=== PATIENT | female | born 1970 | race Caucasian/White ===

== ENCOUNTER 2025-07-25 16:26 | Observation (INO) | payer MEDICARE, MEDICAID, SELFPAY ==
[2025-07-25] VITALS (9 sets, daily range): BP systolic 115–159; BP diastolic 72–90; PULSE 73–170; RESP 15–22; TEMP 36.4–36.6; O2SAT 96–100
--- NOTE | 2025-07-25 16:29 | XRR_ITS ---
PROCEDURE INFORMATION: Exam: XR Chest Exam date and time: 07/25/2025 4:31 PM Age: 55 years old Clinical indication: Pain; Chest pressure; Additional info: Chest pain TECHNIQUE: Imaging protocol: Radiologic exam of the chest. Views: 1 view. COMPARISON: No relevant prior studies available. FINDINGS: Lungs: No infiltrates. No suspicious masses or nodules. No pulmonary vascular congestion. Pleural spaces: No pleural effusions or pneumothorax. Heart/Mediastinum: Nuni-iw-wsgnymsz cardiomegaly. Bones/joints: No significant osseous lesion. No fractures. XR/XR chest 1V portable [id number] IMPRESSION: 1. No acute cardiopulmonary findings radiographically. 2. Oebu-wk-vlhhzqrd cardiomegaly.
--- NOTE | 2025-07-25 16:29 | ECG_ITS ---
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: : 1970 Requested By: Lo Plummer Order Number: [id number] Suresh MD: KELECHI VANCE Measurements Intervals [place] Rate: 72 P: 61 ID: [id number] QRS: 55 QRSD: 88 T: 50 QT: 367 QTc: 402 Interpretive Statements SINUS RHYTHM LOW QRS VOLTAGE IN PRECORDIAL LEADS [QRS DEFLECTION < 1.0 mV IN CHEST LEADS] POSSIBLE ANTERIOR MYOCARDIAL INFARCTION , OF INDETERMINATE AGE [30 ms Q WAVE IN V3/V4, OR R < 0.2 mV IN V4] No previous ECG available for comparison Electronically Signed On 07-26-2025 16:48:58 CDT by KELECHI VANCE [email or web address] [id number]
--- NOTE | 2025-07-25 16:33 | ED_ITS ---
HPI - Chest Pain 2 General: Chief Complaint: Chest Pain Stated Complaint: Chest Pain Time Seen by Provider: 07/25/25 16:29 History of Present Illness: 55-year-old female with a history of obe sity, schizophrenia and hypertension who presents emergency room with chest pain. She says she had an abnormal stress test at 1 point but never went back and had it followed up. She is having central substernal chest pain. Is been going on for couple days now. No cough. No fever. No nausea or vomiting. No altered mental status Related Data Allergies Allergy/AdvReac Type Severity Reaction Status Date / Time codeine Allergy Unknown Verified 07/25/25 16:37 levofloxacin (From Levaquin) Allergy Unknown Verified 07/25/25 16:37 Penicillins Allergy Unknown Verified 07/25/25 16:37 Tetanus Vaccines and Toxoid Allergy Unknown Verified 07/25/25 16:37 Review of Systems 2 Narrative: Constitutional symptoms: Negative except as documented in HPI. Skin symptoms: Negative except as documented in HPI. Eye symptoms: Negative except as documented in HPI. ENMT symptoms: Negative except as documented in HPI. Respiratory symptoms: Negative except as documented in HPI. Cardiovascular symptoms: Negative except as documented in HPI. Gastrointestinal symptoms: Negative except as documented in HPI. Genitourinary symptoms: Negative except as documented in HPI. Musculoskeletal symptoms: Negative except as documented in HPI. Neurologic symptoms: Negative except as documented in HPI. Psychiatric symptoms: Negative except as documented in HPI. Endocrine symptoms: Negative except as documented in HPI. Physical Exam 2 Narrative: EXAM NARRATIVE: General: Alert, no acute distress. Skin: Warm, dry. Head: Normocephalic, atraumatic. Neck: Supple, trachea midline. Eye: Extraocular movements are intact. Ears, nose, mouth and throat: mucosa moist. Cardiovascular: Regular, Normal peripheral perfusion. Respiratory: Lungs are clear to auscultation, respirations are non-labored, breath sounds are equal, Symmetrical chest wall expansion. Gastrointestinal: Soft, Nontender, Non distended Musculoskeletal: Normal ROM, no deformity. Neurological: Alert and oriented, No focal neurological deficit observed. Psychiatric: Cooperative, appropriate mood & affect. Course 2 Vital Signs: Vital signs: Vital Signs Temperature 97.8 F 07/25/25 16:30 Pulse Rate 74 07/25/25 18:35 Respiratory Rate 20 H 07/25/25 18:35 Blood Pressure 130/79 07/25/25 18:35 Pulse Oximetry 100 07/25/25 18:35 Oxygen Delivery Me thod Room Air 07/25/25 18:35 MDM - Chest Pain Medical Decision Making Differential diagnosis for patient with chest pain includes but is not limited to and based on the above HPI, review of systems and physical exam: Pneumonia. unstable angina. angina. Acute coronary syndrome / SD. Pulmonary embolism. Costochondritis / musculoskeletal. Pleurisy. Pericarditis. Esophageal spasm. Pancreatis. Cholecystitis. Orders placed to evaluate differential diagnosis based on the above differential, HPI and physical exam EKG: Time 1627. Rate 72. Normal sinus rhythm, nonspecific ST changes, no ectopy, normal GA & QRS intervals, This was reviewed and interpreted by myself the ER physician at 1631 Lab Review: Laboratory results were reviewed and interpreted by myself the emergency room physician. No leukocytosis. No anemia. BUNs slightly elevated at 25 with a normal creatinine at 0.7. Initial troponin is negative at less than 6. Chest x-ray: Mild to moderate cardiomegaly. No acute process. No infiltrate. No pneumothorax. This was reviewed and interpreted by myself the emergency room physician. I also reviewed the radiology report. I reviewed the patient's medical record. No previous visits here. Reexamination: Patient remained stable. No increased work of breathing. No altered mental status. No focal motor deficits. Consultation: I spoke Dr. Brenda Abbasi who is on-call for the hospitalist service who agrees to admission. Assessment and plan: Chest pain History of abnormal stress test ?Given heart score and a previous abnormal stress test patient should be observed. -I discussed the patient with the hospitalist on-call who is admitting the patient. - Discussed findings and plan with patient. Answered any questions. - All laboratory values were reviewed and interpreted personally by myself, the ER physician - All imaging was reviewed and interpreted personally by myself, the ER physician. - Evaluation and treatment of this problem were appropriate in the emergency setting Lab Data 07/25/25 16:41 07/25/25 16:41 Radiology Impressions Chest X-Ray 07/25/25 16:29 IMPRESSION: 1. No acute cardiopulmonary findings radiographically. 2. Rhsm-dm-gbakskgr cardiomegaly. Laboratory Results WBC 12.08 10^3/uL (3.29-11.43) H 07/25/25 16:41 RBC 4.83 10^6/uL (3.85-5.65) 07/25/25 16:41 Hgb 13.20 g/dL (11.27-16.99) 07/25/25 16:41 Hct 41.9 % (36-47) 07/25/25 16:41 MCV 86.7 fl (85-98) 07/25/25 16:41 MCH 27.3 pg (27-33) 07/25/25 16:41 MCHC 31.5 g/dL (30-55) 07/25/25 16:41 RDW 14.7 % (12.1-15.1) 07/25/25 16:41 Plt Count 221 10^3/cmm (157-399) 07/25/25 16:41 MPV 10.0 fL (7.4-10.4) 07/25/25 16:41 Neut % (Auto) 74.7 % 07/25/25 16:41 Lymph % (Auto) 15.1 % 07/25/25 16:41 [place] % (Auto) 6.2 % 07/25/25 16:41 Eos % (Auto) 2.9 % 07/25/25 16:41 Baso % (Auto) 0.9 % 07/25/25 16:41 Neut # (Auto) 9.02 10^3/uL (1.8-7.7) H 07/25/25 16:41 Lymph # (Auto) 1.8 10^3/uL (0.8-4.8) 07/25/25 16:41 [place] # (Auto) 0.8 10^3/uL (0.2-0.9) 07/25/25 16:41 Eos # (Auto) 0.4 10^3/uL (0.0-0.8) 07/25/25 16:41 Baso # (Auto) 0.1 10^3/uL (0.0-0.1) 07/25/25 16:41 Nucleated RBC % (auto) 0 % 07/25/25 16:41 Nucleated RBCs # 0.0 /100WBC 07/25/25 16:41 Sodium 142 mmol/L (136-145) 07/25/25 16:41 Potassium 4.4 mmol/L (3.5-5.1) 07/25/25 16:41 Chloride 106 mmol/L (98-107) 07/25/25 16:41 Carbon Dioxide 26 mmol/L (22-29) 07/25/25 16:41 Anion Gap 14.4 (5-19) 07/25/25 16:41 BUN 25 mg/dL (6-20) H 07/25/25 16:41 Creatinine 0.7 mg/dL (0.5-0.9) 07/25/25 16:41 GFR Calculation 86.6 mL/min (90-130) L 07/25/25 16:41 Glucose 99 mg/dL (65-115) 07/25/25 16:41 Calculated Osmolality 298 mOsm/kg (285-295) H 07/25/25 16:41 Calcium 9.2 mg/dL (8.5-10.5) 07/25/25 16:41 Total Bilirubin 0.3 mg/dL (0.15-1.2) 07/25/25 16:41 AST 14 U/L (0-32) 07/25/25 16:41 ALT 15 U/L (0-33) 07/25/25 16:41 Alkaline Phosphatase 73 U/L (35-105) 07/25/25 16:41 Troponin T Baseline < 6 ng/L (0-10) 07/25/25 16:41 NT-Pro-B Natriuret Pep 73 pg/mL (0-125) 07/25/25 16:41 Total Protein 6.4 g/dL (6.6-8.7) L 07/25/25 16:41 Albumin 4.1 g/dL (3.5-5.2) 07/25/25 16:41 Globulin 2.3 g/dL (1.3-4.6) 07/25/25 16:41 All radiology interpretation(s) finalized by discharge Clincial Decision Support The following clinical decision support tools were used to aid in care of the patient HEART Score -> History: Moderately Suspicious, EKG: Non-specific Changes, Age: 45-64 yrs, Risk Factors: 1 or 2 Risk Factors, Troponin: Baseline Trop <16 ng/L. Resulting HEART Score: 4. Discharge Plan Discharge Patient Disposition: Placed in Observation Admit Provider: Valeria Abbasi Clinical Impression: Chest pain Coding Level of Care Code ED [employer] Administrator for Chg Fwd Heart Score HEART Score Components History: Moderately Suspicious EKG: Non-specific Changes Age: 45-64 yrs Risk Factors: 1 or 2 Risk Factors Troponin: Baseline Trop <16 ng/L HEART Score RESULT HEART Score: 4
[2025-07-25 16:55] LABS: Hematocrit 41.9 % (36-47); Hemoglobin 13.20 g/dL (11.27-16.99); Mean Corpuscular HGB Conc 31.5 g/dL (30-55); Mean Corpuscular Hemoglobin 27.3 pg (27-33); Mean Corpuscular Volume 86.7 fl (85-98); Nucleated Red Blood Cells % 0 %; Platelet Count 221 10^3/cmm (157-399); Red Blood Count 4.83 10^6/uL (3.85-5.65); White Blood Count 12.08 10^3/uL (3.29-11.43)
[2025-07-25 17:21] LABS: Troponin(5th) Baseline < 6 ng/L (0-10)
[2025-07-25 17:31] LABS: Alanine Aminotransferase 15 U/L (0-33); Albumin Level 4.1 g/dL (3.5-5.2); Alkaline Phosphatase 73 U/L (35-105); Aspartate Amino Transferase 14 U/L (0-32); Blood Urea Nitrogen 25 mg/dL (6-20); Calcium 9.2 mg/dL (8.5-10.5); Carbon Dioxide 26 mmol/L (22-29); Chloride 106 mmol/L (98-107); Creatinine Clr Calc Pharmacy 111.4163; Globulin 2.3 g/dL (1.3-4.6); Glucose 99 mg/dL (65-115); NT Pro B Type Natriuretic Pept 73 pg/mL (0-125); Osmolality Calculated 298 mOsm/kg (285-295); Sodium 142 mmol/L (136-145); Total Protein 6.4 g/dL (6.6-8.7)
[2025-07-25 17:35] LABS: Anion Gap 14.4 (5-19); Potassium 4.4 mmol/L (3.5-5.1)
[2025-07-25 18:44] LABS: Troponin 5 2HR < 6.0 ng/L (0-10); Troponin 5 2HR Delta 0 ABS# (0-10)
--- NOTE | 2025-07-25 19:04 | ECG_ITS ---
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1970 Requested By: Lo Plummer Order Number: [id number] Reading MD: KELECHI VANCE Measurements Intervals [place] Rate: 67 P: 56 NH: 192 QRS: 44 QRSD: 90 T: 61 QT: 403 QTc: 425 Interpretive Statements SINUS RHYTHM LOW QRS VOLTAGE IN PRECORDIAL LEADS [QRS DEFLECTION < 1.0 mV IN CHEST LEADS] POSSIBLE ANTERIOR MYOCARDIAL INFARCTION , OF INDETERMINATE AGE [30 ms Q WAVE IN V3/V4, OR R < 0.2 mV IN V4] Compared to ECG 07/25/2025 16:27:07 No significant changes Electronically Signed On 07-26-2025 16:56:11 CDT by KELECHI VANCE [id number] [id number]
[2025-07-25 19:17] LABS: Procalcitonin 0.06 ng/mL (0-0.5)
--- NOTE | 2025-07-25 19:24 | P.HP_ITS ---
Providers/Chief Complaint 2 Admitting Physician: Valeria Abbasi MD Chief Complaint: Chest Pain History of Present Illness Laura Murphy is a 55 year old female with COPD, hypertension, schizophrenia, and obesity presenting with chest pain and shortness of breath. She has been having intermittent chest pain for the past few days. It starts in the substernal region and radiates across both sides of the chest. She has a chronic cough that is unchanged. She does report increased shortness of breath and wheezing. She is an everyday smoker. She had an an abnormal stress test several years ago but had no follow-up. Her initial troponin was negative. EKG showed T wave inversion in anterior leads. Review of Systems 2 General: Reports: 10 or more systems reviewed and unremarkable except in HPI and below Medications/Allergies Allergies Allergy/AdvReac Type Severity Reaction Status Date / Time codeine Allergy Unknown Verified 07/25/25 16:37 levofloxacin (From Levaquin) Allergy Unknown Verified 07/25/25 16:37 Penicillins Allergy Unknown Verified 07/25/25 16:37 Tetanus Vaccines and Toxoid Allergy Unknown Verified 07/25/25 16:37 Vitals/I&O/Wt Last Vital Signs Temp 97.8 F 07/25/25 16:30 Pulse 74 07/25/25 18:35 Resp 20 H 07/25/25 18:35 BP 130/79 07/25/25 18:35 Pulse Ox 100 07/25/25 18:35 O2 Del Method Room Air 07/25/25 18:35 Weight last 48 hrs Weight 128.367 kg Physical Exam 2 Narrative: GEN: Obese, no acute distress HEENT: PERRLA, EOMI, normocephalic and atraumatic Neck: Supple Respiratory: Diffuse wheezing bilaterally, mild increased work of breathing Cardio: Regular rate and rhythm, S1, S2, no murmur noted Abdomen: Soft, nontender, nondistended, normal active bowel sounds Extremities: Warm, no edema Psych: Cooperative Data 07/25/25 16:41 07/25/25 16:41 EKG 1: My Interpretation: Normal sinus rhythm, T wave inversion in V2, no ST elevation A&P Assessment and plan 1. Chest pain: She has respecters including obesity, tobacco use disorder, and hypertension Aspirin 81 mg daily, nitroglycerin as needed Trend troponin Telemetry monitoring Echo and stress test in a.m. 2. COPD with acute exacerbation: Solu-Medrol 40 every 8, DuoNeb 4 times daily Monitor O2 sats 3. Tobacco use disorder: Counseled on smoking cessation for 4 minutes Nicotine patch ordered 4. Hypertension: Monitor blood pressure closely 5. Schizophrenia: Not on any meds at this time 6. Obesity: She would benefit from significant weight loss. PDMP PDMP Reviewed: Not Reviewed Attestations 2 Medical Necessity Statement*: She requires initial hospitalization for telemetry monitoring, IV steroids, stress test, and echocardiogram. Coding Level of Care Code Acute Code for [facility] Diagnoses Chest pain R07.9 COPD with acute exacerbation J44.1 Tobacco use disorder F17.200 Hypertension I10 Schizophrenia F20.9 Obesity E66.9
--- NOTE | 2025-07-25 20:12 | CTR_ITS ---
PROCEDURE INFORMATION: Exam: CTA Chest With Contrast Exam date and time: 07/25/2025 8:34 PM Age: 55 years old Clinical indication: Pain; Angina pectoris; Additional info: Chest pain TECHNIQUE: Imaging protocol: Computed tomographic angiography of the chest with contrast. Exam focused on the arteries. 3D rendering (Not supervised by radiologist): MIP and/or 3D reconstructed images were created by the technologist. Radiation optimization: All CT scans at this facility use at least one of these dose optimization techniques: automated exposure control; mA and/or kV adjustment per patient size (includes targeted exams where dose is matched to clinical indication); or iterative reconstruction. Contrast material: OMNI 350; Contrast volume: 100 ml; Contrast route: INTRAVENOUS (IV); COMPARISON: CR XR chest 1V portable [id number] 07/25/2025 4:31 PM RADIATION DOSE METRICS: Total DLP (mGy-cm): 540.99 FINDINGS: Pulmonary arteries: There is no demonstration of acute or chronic pulmonary embolism Aorta: Unremarkable. No aortic aneurysm. No aortic dissection. Lungs: There is a 3 mm noncalcified right upper lobe pulmonary nodule on image 182 series 8 there is a 2nd 3 mm noncalcified pulmonary nodule right upper lobe image 163 series 8 Pleural spaces: There are no consolidations, pleural effusions or pneumothoraces. Heart: Unremarkable. No cardiomegaly. No pericardial effusion. Coronary arteries: Coronary artery calcifications demonstrated Lymph nodes: Unremarkable. No enlarged lymph nodes. Pancreas: There is partial fatty replacement of the pancreas. Bones/joints: Unremarkable. No acute fracture. Soft tissues: Unremarkable. Other findings: There is no aneurysm CT/CT angio chest [id number] IMPRESSION: No findings to suggest acute or chronic pulmonary embolism No acute cardiopulmonary process demonstrated Findings of right upper lobe noncalcified pulmonary nodules 3 mm, for follow-up guidelines see below statement: For patients at low risk (minimal or absent history of smoking and of other known risk factors), no routine follow-up is indicated. For patients at high risk (history of smoking or of other known risk factors), consider optional CT Chest at 12 months. (Reference: Giselle) References: Giselle Contreras et al. Guidelines for Management of Incidental Pulmonary Nodules Detected on CT Images: From the Fleischner Society 2017. Radiology. 2017;284(1):228-243.
--- NOTE | 2025-07-25 21:02 | ECG_ITS ---
[facility] Test Date: 2025-07-26 Pat Name: Laura Murphy Department: Room: 267 Gender: Female Welt Rander: : 1970 Requested By: Valeria Abbasi Order Number: [id number] Reading MD: Interpretive Statements Lung unchanged pre/post procedure; Intraprocedure shortess of breath; Symptoms resoled by discharge [email or web address] [id number]
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
[2025-07-25] MEDS: methylPREDNISolone sod succ 40 mg/mL INJ IVP (21:18)
--- NOTE | 2025-07-25 22:29 | ECG_ITS ---
[employer] Test Date: 2025-07-25 Pat Name: Laura Murphy Department: Room: 267 Gender: Female Data Clerk: : 1970 Requested By: Lo Plummer Order Number: [id number] Reading MD: KELECHI VANCE Measurements Intervals [place] Rate: 63 P: 64 DE: 189 QRS: 63 QRSD: 92 T: 64 QT: 392 QTc: 403 Interpretive Statements SINUS RHYTHM LOW QRS VOLTAGE [QRS DEFLECTION < 0.5/1.0 mV IN LIMB/CHEST LEADS] POSSIBLE ANTERIOR MYOCARDIAL INFARCTION , OF INDETERMINATE AGE [30 ms Q WAVE IN V3/V4, OR R < 0.2 mV IN V4] Compared to ECG 07/25/2025 19:04:21 No significant changes Electronically Signed On 07-26-2025 16:56:15 CDT by KELECHI VANCE [id number] [id number]
[2025-07-25 23:58] LABS: Troponin 5 6HR < 6.0 ng/L (0-10); Troponin 5 6HR Delta 0 ng/L (0-12)
[2025-07-26] VITALS (13 sets, daily range): BP systolic 111–146; BP diastolic 66–96; PULSE 64–90; RESP 16–20; TEMP 36.5–37.1; O2SAT 92–100
[2025-07-26] MEDS: methylPREDNISolone sod succ 40 mg/mL INJ IVP ×3 (04:16→20:19)
[2025-07-26 05:12] LABS: Hematocrit 43.7 % (36-47); Hemoglobin 14.10 g/dL (11.27-16.99); Mean Corpuscular HGB Conc 32.3 g/dL (30-55); Mean Corpuscular Hemoglobin 27.5 pg (27-33); Mean Corpuscular Volume 85.4 fl (85-98); Nucleated Red Blood Cells % 0 %; Platelet Count 276 10^3/cmm (157-399); Red Blood Count 5.12 10^6/uL (3.85-5.65); White Blood Count 9.24 10^3/uL (3.29-11.43)
[2025-07-26 05:31] LABS: Cholesterol 232 mg/dL (0-200); HDL Cholesterol 86 mg/dL (60-100); Triglycerides 74 mg/dL (0-150)
[2025-07-26 05:34] LABS: Albumin Level 4.2 g/dL (3.5-5.2); Anion Gap 15.0 (5-19); Blood Urea Nitrogen 19 mg/dL (6-20); Calcium 9.7 mg/dL (8.5-10.5); Carbon Dioxide 26 mmol/L (22-29); Chloride 104 mmol/L (98-107); Creatinine Clr Calc Pharmacy 131.1849; Glucose 162 mg/dL (65-115); Magnesium 2.2 mg/dL (1.7-2.3); Potassium 5.0 mmol/L (3.5-5.1); Sodium 140 mmol/L (136-145)
[2025-07-26] MEDS: aminophylline 25 mg/mL SDV 20 mL IVP (07:38)
--- NOTE | 2025-07-26 10:01 | PC.PHAR ---
Pt not in room at 1st visit and unable to wake up at 2nd visit. Verified pts current meds via [facility] and [facility].
--- NOTE | 2025-07-26 11:52 | PM.PN ---
Subjective Subjective: She reported fatigue and wheezing. She also has a headache. She had a stress test this morning along with echo. Results are pending. She does not feel like she is well enough to go home today. Medications: Reviewed: Yes Vitals/I&O/Wt Last Vital Signs Temp 98.0 F 07/26/25 11:13 Pulse 75 07/26/25 11:43 Resp 18 07/26/25 11:35 BP 118/81 07/26/25 11:13 Pulse Ox 98 07/26/25 11:35 O2 Del Method Room Air 07/26/25 11:35 07/25/25 07/26/25 07/26/25 22:59 06:59 14:59 Output Total 1500 / 1500 Balance -1500 / -1500 Weight last 48 hrs Weight 128.565 kg Weight 128.565 kg Weight 130.181 kg Weight 128.367 kg Physical Exam Narrative: GEN: Obese, no acute distress HEENT: PERRLA, EOMI, normocephalic and atraumatic Neck: Supple Respiratory: Bilateral expiratory wheezing, no respiratory distress Cardio: Regular rate and rhythm, S1, S2, no murmur noted Abdomen: Soft, nontender, nondistended, normal active bowel sounds Extremities: Warm, no edema Psych: Cooperative Data 07/26/25 04:37 07/26/25 04:37 A&P Assessment and plan 1. Chest pain: She has risk factors including obesity, tobacco use disorder, and hypertension Aspirin 81 mg daily, nitroglycerin as needed Troponin has been negative Follow-up official reports of echo and nuclear stress test Telemetry monitoring 2. COPD with acute exacerbation: Saturating well on room air but still has bilateral expiratory wheezing Continue Solu-Medrol 40 every 8, DuoNeb 4 times daily Monitor O2 sats 3. Tobacco use disorder: Counseled on smoking cessation for 4 minutes Continue nicotine patch 4. Hypertension: BP has been stable, continue to monitor 5. Schizophrenia: Not on any meds at this time 6. Obesity: She would benefit from significant weight loss. PDMP PDMP Reviewed: Not Reviewed Attestations Medical Necessity Statement*: She needs continued hospitalization for IV steroids and neb treatments. Coding Level of Care Code Acute Code for [facility] Diagnoses Chest pain R07.9 COPD with acute exacerbation J44.1 Tobacco use disorder F17.200 Hypertension I10 Schizophrenia F20.9 Obesity E66.9
[2025-07-26 17:33] LABS: Coronavirus 229E,HKU1,NL63,OC4 Not Detected (NOT DETECT); Parainfluenza Virus Type 1 Not Detected (NOT DETECT); Parainfluenza Virus Type 2 Not Detected (NOT DETECT); Parainfluenza Virus Type 3 Not Detected (NOT DETECT); Parainfluenza Virus Type 4 Not Detected (NOT DETECT); SARS-COV-2 Not Detected (NOT DETECT)
--- NOTE | 2025-07-26 21:02 | NMCV_ITS ---
NM mc perf SPECT r/s* [id number] Laura Murphy Age: 55 Gender: F : 1970 Exam Date: 07/26/2025 06:47 Ordering Phys: Valeria Abbasi MD Technologist: CARMENCITA Noriega Exam Location: [facility] Indications: cp STRESS TEST Please see separate stress test report in [facility] for full findings IMAGE PROTOCOL Rest/Stress 1 Lexiscan Day Radiopharmaceutical Dose (mCi) Administration Site Administered by Rest: Tc-99m 11 IV CARMENCITA Noriega Sestamibi Stress:Tc-99m 33 IV CARMENCITA Gomez Sestamibi Rest: 26-Jul-2025 60 Discovery 630 Stress: 26-Jul-2025 30 Discovery 630 0.4mg Lexiscan. Images obtained in supine and prone position. SPECT RESULTS Technical Quality: Good Raw Data Analysis: Normal Image Corrections: No attenuation or motion correction applied Summed Stress Score: 0 Summed Rest Score: 0 Summed Difference Score: 0 PERFUSION FINDINGS Small areas of inconsistent perfusion defect seen in anterior and inferior higgins. Likely attenuation artifact. No significant ischemia seen. FUNCTIONAL RESULTS (calculated via Gated SPECT) Stress Image LV EF (%): 65 Stress EDV (mL):141 TID: 1.28 Stress ESV (mL):49 FUNCTIONAL FINDINGS: There is normal left ventricular systolic function. IMPRESSIONS 1. Small areas of attenuation artifact seen in anterior and inferior higgins. No significant ischemia. Clinical correlation is required. 2. LV systolic function is normal William Manuel MD (Electronically Signed) Final Date: 26 July 2025 11:02 S
--- NOTE | 2025-07-26 21:02 | USCV_ITS ---
Laura Murphy Age: 55 Gender: F : 1970 Exam Date: 07/26/2025 11:03 Ordering Phys: Valeria Abbasi MD Technologist: Exam Location: [facility] [place] Indication: cp sob BP: 130 / 80 HR: 88 Rhythm: Sinus Technical Quality: Adequate MEASUREMENTS (Male / Female) Normal Values 2D ECHO LV Diastolic Diameter PLAX 4.7 cm 4.2 - 5.9 / 3.9 - 5.3 cm IVS Diastolic Thickness 1.4 cm 0.6 - 1.0 / 0.6 - 0.9 cm IVS Systolic Thickness 1.7 cm LVPW Diastolic Thickness 1.4 cm 0.6 - 1.0 / 0.6 - 0.9 cm LVPW Systolic Thickness 1.5 cm LVOT Diameter 2.1 cm LV Ejection Fraction 2D Teich 66.0 % LV Ejection Fraction MOD 4C 57.1 % LV Ejection Fraction MOD 2C 50.7 % LV Ejection Fraction 2C AL 52.7 % LA Diameter 3.8 cm RA Systolic Volume 4C AL 72.1 ml RA Systolic Volume 4C MOD 70.0 ml Aorta at Sinotubular Diameter 2.8 cm IVC Diameter 1.9 cm M-MODE LA Ao Ratio MM 1.5 MV E Point Septal Separation 1.6 cm AV Cusp Separation MM 2.7 cm DOPPLER AV Peak Velocity 172.0 cm/s LVOT Peak Velocity 102.0 cm/s AV Area Cont Eq vti 2.1 cm squared AV Area Cont Eq pk 2.0 cm squared MV Peak Velocity 137.0 cm/s MV Area PHT 2.8 cm squared Mitral E to A Ratio 0.8 TV Peak Velocity 160.0 cm/s TR Peak Velocity 161.0 cm/s TR Peak Gradient 10.4 mmHg TV Peak E Velocity 120.0 cm/s PV Peak Velocity 164.0 cm/s FINDINGS Left Ventricle Normal left ventricular size, systolic function and wall thickness, with no regional wall motion abnormalities. Left ventricular ejection fraction is estimated at 60%. Grade I/IV diastolic dysfunction (abnormal relaxation filling pattern), normal to mildly elevated filling pressures. Right Ventricle Normal right ventricular size and systolic function. Right Atrium Normal right atrial size. Left Atrium Mildly increased left atrial size. IA Septum Normal appearance of the interatrial septum. Mitral Valve Mildly thickened mitral valve. No mitral valve stenosis. Mild mitral valve regurgitation. Aortic Valve Mild aortic valve calcification. No aortic valve stenosis. Mild aortic valve regurgitation. Tricuspid Valve Mild tricuspid valve regurgitation. Pulmonic Valve Normal pulmonic valve structure. No pulmonic valve stenosis or regurgitation. Pericardium No pericardial effusion. Aorta Normal diameter of the aortic root and ascending thoracic aorta. IVC Normal IVC diameter. CONCLUSIONS Normal left ventricular size, systolic function and wall thickness, with no regional wall motion abnormalities. Left ventricular ejection fraction is estimated at 60%. Grade I/IV diastolic dysfunction (abnormal relaxation filling pattern), normal to mildly elevated filling pressures. Mild aortic valve calcification. No aortic valve stenosis. Mild aortic valve regurgitation. There is no pericardial effusion. Right atrial pressure is around 5 mm of mercury. Jeanette Dale MD (Electronically Signed) Final Date: 27 July 2025 13:44 S
[2025-07-27] VITALS (7 sets, daily range): BP systolic 142–167; BP diastolic 80–92; PULSE 70–94; RESP 16–24; TEMP 36.6–37.1; O2SAT 94–97
[2025-07-27] MEDS: methylPREDNISolone sod succ 40 mg/mL INJ IVP (05:26)
--- NOTE | 2025-07-27 11:14 | PM.DCS ---
Discharge Providers Date of Admission: 07/25/25 18:32 Date of Discharge: July 27, 2025 Attending Provider at Admission: Valeria Abbasi MD Attending Provider at Discharge: Valeria Abbasi MD Consults: None Diagnoses at Discharge Discharge Diagnosis 1. Chest pain: 2. COPD with acute exacerbation: 3. Tobacco use disorder: 4. Hypertension: 5. Schizophrenia: 6. Obesity: Reason for Visit Reason for Visit: Chest Pain Brief History: This is a 55 year old female with COPD, hypertension, schizophrenia, and obesity who with chest pain, wheezing and shortness of breath. She is an everyday smoker. She had an an abnormal stress test several years ago but had no follow-up. Her initial troponin was negative. EKG showed T wave inversion in anterior leads. Hospital Course Hospital Course There was no significant ischemia on nuclear cardiac stress test. Echocardiogram showed normal LV size, systolic function, and wall thickness. There was no regional wall motion abnormalities. LVEF was 60%. She had grade 1 diastolic dysfunction. She had notable wheezing on admission. She still smokes. She was treated for COPD exacerbation. She was discharged home on a prednisone taper. She is saturating well on room air. She did not qualify for home oxygen. She used to wear 2 L/min O2 at night. She was concerned about sleep apnea. Outpatient sleep study was ordered. Physical Exam Narrative: GEN: Obese, no acute distress HEENT: PERRLA, EOMI, normocephalic and atraumatic Neck: Supple Respiratory: Scattered expiratory wheezing, no respiratory distress Cardio: Regular rate and rhythm, S1, S2, no murmur noted Abdomen: Soft, nontender, nondistended, normal active bowel sounds Extremities: Warm, no edema Psych: Cooperative Discharge Data Studies Completed and Pending Completed Studies During Hospitalization Category Date Time Status CTA chest [CT angio chest 03497] Routine Cat Scan 07/25/25 20:12 Completed Cardiac Stress Test MIBI [Sestamibi Stress Test Request Exams 07/25/25 21:02 Draft ] Routine XR chest 1V portable [id number] Stat Exams 07/25/25 16:29 Completed NM mc perf SPECT r/s* [id number] Routine Nuc Med 07/26/25 21:02 Completed Pending at discharge Category Date Time Status Sputum Culture and Gram Stain Stat Lab 07/27/25 08:15 Received CV. echo complete* [id number] Routine Ultrasound 07/26/25 21:02 Taken Radiology Impressions Chest X-Ray 07/25/25 16:29 IMPRESSION: 1. No acute cardiopulmonary findings radiographically. 2. [id number]-[id number] cardiomegaly. Chest CTA 07/25/25 20:12 IMPRESSION: No findings to suggest acute or chronic pulmonary embolism No acute cardiopulmonary process demonstrated Findings of right upper lobe noncalcified pulmonary nodules 3 mm, for follow-up guidelines see below statement: For patients at low risk (minimal or absent history of smoking and of other known risk factors), no routine follow-up is indicated. For patients at high risk (history of smoking or of other known risk factors), consider optional CT Chest at 12 months. (Reference: Giselle) References: Giselle Contreras, et al. Guidelines for Management of Incidental Pulmonary Nodules Detected on CT Images: From the Fleischner Society 2017. Radiology. 2017;284(1):228-243. Laboratory Results WBC 9.24 10^3/uL (3.29-11.43) 07/26/25 04:37 RBC 5.12 10^6/uL (3.85-5.65) 07/26/25 04:37 Hgb 14.10 g/dL (11.27-16.99) 07/26/25 04:37 Hct 43.7 % (36-47) 07/26/25 04:37 MCV 85.4 fl (85-98) 07/26/25 04:37 MCH 27.5 pg (27-33) 07/26/25 04:37 MCHC 32.3 g/dL (30-55) 07/26/25 04:37 RDW 14.6 % (12.1-15.1) 07/26/25 04:37 Plt Count 276 10^3/cmm (157-399) 07/26/25 04:37 MPV 9.9 fL (7.4-10.4) 07/26/25 04:37 Neut % (Auto) 92.5 % 07/26/25 04:37 Lymph % (Auto) 6.0 % 07/26/25 04:37 Frederick % (Auto) 0.5 % 07/26/25 04:37 Eos % (Auto) 0.1 % 07/26/25 04:37 Baso % (Auto) 0.6 % 07/26/25 04:37 Neut # (Auto) 8.54 10^3/uL (1.8-7.7) H 07/26/25 04:37 Lymph # (Auto) 0.6 10^3/uL (0.8-4.8) L 07/26/25 04:37 Frederick # (Auto) 0.1 10^3/uL (0.2-0.9) L 07/26/25 04:37 Eos # (Auto) 0.0 10^3/uL (0.0-0.8) 07/26/25 04:37 Baso # (Auto) 0.1 10^3/uL (0.0-0.1) 07/26/25 04:37 Nucleated RBC % (auto) 0 % 07/26/25 04:37 Nucleated RBCs # 0.0 /100WBC 07/26/25 04:37 D-Dimer 1.01 ug/mLFEU (0-0.59) H 07/25/25 16:41 Sodium 140 mmol/L (136-145) 07/26/25 04:37 Potassium 5.0 mmol/L (3.5-5.1) 07/26/25 04:37 Chloride 104 mmol/L (98-107) 07/26/25 04:37 Carbon Dioxide 26 mmol/L (22-29) 07/26/25 04:37 Anion Gap 15.0 (5-19) 07/26/25 04:37 BUN 19 mg/dL (6-20) 07/26/25 04:37 Creatinine 0.6 mg/dL (0.5-0.9) 07/26/25 04:37 GFR Calculation 103.4 mL/min (90-130) 07/26/25 04:37 Glucose 162 mg/dL (65-115) H 07/26/25 04:37 Calculated Osmolality 298 mOsm/kg (285-295) H 07/25/25 16:41 Calcium 9.7 mg/dL (8.5-10.5) 07/26/25 04:37 Phosphorus 3.6 mg/dL (2.5-4.5) 07/26/25 04:37 Magnesium 2.2 mg/dL (1.7-2.3) 07/26/25 04:37 Total Bilirubin 0.3 mg/dL (0.15-1.2) 07/25/25 16:41 AST 14 U/L (0-32) 07/25/25 16:41 ALT 15 U/L (0-33) 07/25/25 16:41 Alkaline Phosphatase 73 U/L (35-105) 07/25/25 16:41 Troponin T Baseline < 6 ng/L (0-10) 07/25/25 16:41 Troponin T 120 Minute < 6.0 ng/L (0-10) 07/25/25 18:17 Delta Troponin T 0 ABS# (0-10) 07/25/25 18:17 Troponin T Hi Sens 6Hr < 6.0 ng/L (0-10) 07/25/25 23:27 Troponin T Hi Sens 6Hr Delta 0 ng/L (0-12) 07/25/25 23:27 NT-Pro-B Natriuret Pep 73 pg/mL (0-125) 07/25/25 16:41 Total Protein 6.4 g/dL (6.6-8.7) L 07/25/25 16:41 Albumin 4.2 g/dL (3.5-5.2) 07/26/25 04:37 Globulin 2.3 g/dL (1.3-4.6) 07/25/25 16:41 Triglycerides 74 mg/dL (0-150) 07/26/25 04:37 Cholesterol 232 mg/dL (0-200) H 07/26/25 04:37 LDL Cholesterol, Calc 131 mg/dL (50-129) H 07/26/25 04:37 HDL Cholesterol 86 mg/dL (60-100) 07/26/25 04:37 LDL/HDL Ratio 1.52 RATIO (0.00-3.22) 07/26/25 04:37 Cholesterol/HDL Ratio 2.70 mg/dL (0.0-4.40) 07/26/25 04:37 Procalcitonin 0.06 ng/mL (0-0.5) 07/25/25 16:41 Adenovirus (PCR) Not detected (NOT DETECT) 07/26/25 13:12 C. pneumoniae DNA (PCR) Not detected (NOT DETECT) 07/26/25 13:12 Coronavirus 229E (PCR) Not detected (NOT DETECT) 07/26/25 13:12 Human Metapneumovir PCR Not detected (NOT DETECT) 07/26/25 13:12 Influenza A (H1) PCR Not detected (NOT DETECT) 07/26/25 13:12 Influ A (H1/09) PCR Not detected (NOT DETECT) 07/26/25 13:12 Influenza A (H3) PCR Not detected (NOT DETECT) 07/26/25 13:12 Influenza Type A (PCR) Not detected (NOT DETECT) 07/26/25 13:12 Influenza Type B (PCR) Not detected (NOT DETECT) 07/26/25 13:12 M. pneumoniae (PCR) Not detected (NOT DETECT) 07/26/25 13:12 Parainfluenza 1 (PCR) Not detected (NOT DETECT) 07/26/25 13:12 Parainfluenza 2 (PCR) Not detected (NOT DETECT) 07/26/25 13:12 Parainfluenza 3 (PCR) Not detected (NOT DETECT) 07/26/25 13:12 Parainfluenza 4 (PCR) Not detected (NOT DETECT) 07/26/25 13:12 RSV Type A (PCR) Not detected (NOT DETECT) 07/26/25 13:12 RSV Type B (PCR) Not detected (NOT DETECT) 07/26/25 13:12 Entero/Rhino (PCR) Not detected (NOT DETECT) 07/26/25 13:12 SARS-CoV-2 (PCR) Not detected (NOT DETECT) 07/26/25 13:12 Vitals Last Vital Signs Temp 98.0 F 07/27/25 07:16 Pulse 94 07/27/25 08:00 Resp 24 H 07/27/25 08:00 BP 153/83 07/27/25 07:16 Pulse Ox 96 07/27/25 10:29 O2 Del Method Room Air 07/27/25 08:00 Discharge Plan Discharge Patient Disposition: Home Condition: Stable Prescriptions: New nicotine 21-14-7 mg/24 hr patch, TD daily, sequential See Rx Instructions .ROUTE .COMPLEX Qty: 56 0RF Rx Instructions: apply 1-21 mg NICOTINE PATCH daily for 28 days; follow with 1-14 mg PATCH daily for 14 days, then 1-7mg PATCH daily for 14 days prednisone 10 mg tablets,dose pack See Rx Instructions .ROUTE .COMPLEX Qty: 21 0RF Rx Instructions: 4 tabs x 2 days, then 3 tabs x 2 days, then 2 tabs x 2 days, then 1 tab x 2 days atorvastatin [Lipitor] 40 mg tablet 40 mg PO DAILY Qty: 30 0RF albuterol sulfate 2.5 mg /3 mL (0.083 %) solution for nebulization 2.5 mg inhalation Q6H PRN (Reason: shortness of breath or wheezing) Qty: 180 0RF Continued trazodone 50 mg tablet 50 - 100 mg PO BEDTIME triamcinolone acetonide 0.5 % cream 1 applic TOPICAL BID lithium carbonate 150 mg capsule 150 mg PO QAM lithium carbonate 300 mg capsule 900 mg PO BEDTIME pantoprazole 40 mg tablet,delayed release (DR/EC) 40 mg PO DAILY estradiol 0.01 % (0.1 mg/gram) cream 2 g VAGINAL BEDTIME pregabalin 150 mg capsule 150 mg PO BID montelukast 10 mg tablet 10 mg PO BEDTIME Qty: 30 0RF albuterol sulfate 90 mcg/actuation HFA aerosol inhaler 2 puff INHALATION Q6H PRN (Reason: Shortness Of Breath Or Wheezing) Qty: 8.5 0RF fluticasone furoate-vilanterol [Breo Ellipta] 100-25 mcg/dose blister with device 1 inh INHALATION DAILY Qty: 1 0RF Discharge Order = DC NOW: Discharge Order (Routine); Ordered 07/27/25 Ordered By: Valeria Abbasi Other Ambulatory Orders: DME: Nebulizer with Neb Kit (Order) Location: None Selected Ordered By: Valeria Abbasi Sleep Study W Sleep Stage (Routine) Timeframe: 1 Week Facility: [facility] - Location: [facility] Ordered By: Valeria Abbasi Referrals: Марина Abbasi NP [Nurse Practitioner, Family Practice] - 07/30/25 10:30 am Discharge Diet: Cardiac Discharge Activity: Resume usual activity Patient Instructions: COPD, Prednisone (By mouth), Nicotine (Absorbed through the skin), Atorvastatin (By mouth), COPD Stoplight, Opioid Safety, Patient Portal & [employer] Instructions Discharge Attestations Time Spent in Discharge Care*: greater than 30 min Quality Metrics Clinical Quality Measures [ No reported AMI, CVA or VTE this stay] Coding Level of Care Code Acute Code for Chg Fwd Diagnoses Chest pain R07.9 COPD with acute exacerbation J44.1 Tobacco use disorder F17.200 Hypertension I10 Schizophrenia F20.9 Obesity E66.9
--- NOTE | 2025-07-27 12:57 | PC.NURSE ---
Discussed discharge follow up appointments, new medications, Discussed COPD stoplight, stop smoking. Patient acknowledged all and verbalized understanding. Patient stated nobody can make her stop smoking. Discussed it only damages the lungs more. Stopped by [facility] pharmacy on the way out and picked up medications with patient.
== END 2025-07-27 12:16 | disposition home or self-care (01) ==
LOC: ER 17:49 → MEDSURG 18:33
PROVIDERS: Admitting Provider Student in an Organized Health Care Education/Training Program; Emergency Provider Emergency Medicine; Visit Provider Student in an Organized Health Care Education/Training Program
DX: R07.9 Chest pain, unspecified (principal); J44.1 Chronic obstructive pulmonary disease with (acute) exacerbation; I10 Essential (primary) hypertension; F20.9 Schizophrenia, unspecified; E66.9 Obesity, unspecified; Z68.43 Body mass index [BMI] 50.0-59.9, adult; F17.200 Nicotine dependence, unspecified, uncomplicated; K21.9 Gastro-esophageal reflux disease without esophagitis
CPT/HCPCS: 36415; 71045; 71275; 78452; 80053; 80061; 80069; 83735; 83880; 84145; 84484; 85025; 85378; 87070; 87205; 87486; 87581; 87633; 93005; 93017; 93306; 94640; 94664; 94760; 96365; 96372; 96375; 99285; A9500; G0378; J0280; J1650; J2785; J2919; J9999